=== PATIENT | female | born 1955 | race Caucasian/White ===

== ENCOUNTER 2022-04-18 15:26 | Outpatient (CLI) | payer MEDICARE, SELFPAY ==
--- NOTE | 2022-04-18 13:45 | DI.RAD_ITS ---
Exam(s) XR FOOT RT COMPLETE EXAM: XR FOOT RT COMPLETE CLINICAL HISTORY: foot pain, M79.673. TECHNIQUE: 2D digital imaging was performed. Three views. COMPARISON: No exams were available for comparison FINDINGS: BONES: No acute fracture is present. No bony destructive lesion is seen. Minimal plantar calcaneal s pur. JOINTS: No dislocation present. [id number] degenerative changes of the 1st MTP joint. Subchon dral subchondral cysts in medial spurring at 1st metatarsal head. Degenerative tace is also seen at the sesamoids. Small ossicle noted adjacent to distal cuboid. Small bony density noted at the dorsa l aspect of the talus. Plantar arch is maintained.. SOFT TISSUE: Normal. 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 DATA REPOSITORY: RADIATION DOSE DELIVERED:
--- NOTE | 2022-04-18 13:45 | DI.RAD_ITS ---
Exam(s) XR FOOT LT COMPLETE EXAM: XR FOOT LT COMPLETE CLINICAL HISTORY: foot pain, M79.673. TECHNIQUE: 2D digital imaging was performed. Three views. COMPARISON: CR XR FOOT RT COMPLETE from 04/18/2022 FINDINGS: BONES: No acute fracture is present. No bony destructive lesion is seen. Small heel spurs. Plantar a rch is maintained. JOINTS: No dislocation present. Mild degenerative changes 1st MTP joint. No hallux valgus. Ossicle adjacent distal cuboid. SOFT TISSUE: Normal. IMPRESSION: heel spurs. Mild degenerative changes 1st MTP joint. DATA REPOSITORY: RADIATION DOSE DELIVERED:
== END 2022-04-18 15:46 ==
PROVIDERS: Visit Provider Podiatrist Foot & Ankle Surgery
DX: M79.671 Pain in right foot (principal); M79.672 Pain in left foot; M77.31 Calcaneal spur, right foot; M77.32 Calcaneal spur, left foot; M19.072 Primary osteoarthritis, left ankle and foot; M19.071 Primary osteoarthritis, right ankle and foot
CPT/HCPCS: 73630

== ENCOUNTER 2023-09-10 10:39 | Emergency (ER) | payer MEDICARE, SELFPAY ==
[2023-09-10 10:41] VITALS: BP 161/68; PULSE 63; RESP 16; TEMP 36.7; O2SAT 99
--- NOTE | 2023-09-10 11:38 | ED.GENADUL_ITS ---
Discharge Plan Disposition Patient Disposition: Home Condition: Improving Discharge Details Clinical Impression: Eye irritation Primary Care Provider: Cece,Local ED Provider: Chris Kelly Home Meds and New Rx's Prescriptions: New ofloxacin [Ocuflox] 0.3 % drops See Rx Instructions .ROUTE .COMPLEX Qty: 5 0RF Rx Instructions: put 1-2 drps into affected eye(s) every 2-4 h x 2 days, then 1-2 drps 4 times/day days 3-7 Discharge Instructions Instructions: Conjunctivitis (pink eye) Additional Instructions: Please follow-up with your measuring machine tender. Please return to the emerged part for any worsening symptoms HPI General Date/Time Provider Initiated Documentation: 09/10/23 11:05 . HPI Narrative: 67-year-old female history of cataracts, cataract repair surgery, approximately 2 months ago, presents with foreign body sensation left eye upon waking this morning. Tearing to the eye clear in nature. Related Data Home Medications ?Medication ?Instructions ?Recorded ?Confirmed ofloxacin 0.3 % eye drops (Ocuflox) See Rx Instructions ophthalmic 09/10/23 (eye) .COMPLEX #5 mL Previous Rx's ?Medication ?Instructions ?Recorded ofloxacin 0.3 % eye drops (Ocuflox) See Rx Instructions ophthalmic 09/10/23 (eye) .COMPLEX #5 mL Allergies Allergy/AdvReac Type Severity Reaction Status Date / Time No Known Allergies Allergy Verified 09/10/23 10:43 General Stated Complaint: EyeProblem PB: 4 Exam Narrative Exam Narrative: Resting comfortably no acute distress Clear tearing of left eye, mild conjunctival injection, OS 20/100, OD 20/50, bilateral 20/50, no proptosis, negative for corneal abrasion or corneal ulcer, negative Luisa Speaking full sentences no respiratory distress Alert oriented interactive no focal deficits neurologically Course Vital Signs Vital signs: Vital Signs Temperature 36.7 C 09/10/23 10:41 Pulse 63 09/10/23 10:41 Respiratory Rate 16 09/10/23 10:41 Blood Pressure 161/68 H 09/10/23 10:41 Pulse Oximetry 99 09/10/23 10:41 Temperature 36.7 C 09/10/23 10:41 Temperature Source Skin 09/10/23 10:41 Pulse 63 09/10/23 10:41 Respiratory Rate 16 09/10/23 10:41 Respiratory Effort Normal 09/10/23 11:10 Blood Pressure 161/68 H 09/10/23 10:41 Blood Pressure Position Sitting 09/10/23 10:41 Pulse Oximetry 99 09/10/23 10:41 Oxygen Delivery Method Room Air 09/10/23 10:41 Oxygen Flow Rate 0 09/10/23 10:41 Pain Level 7 09/10/23 10:41 Medical Decision Making 67-year-old female history of cataracts, cataract repair surgery, approximately 2 months ago, presents with foreign body sensation left eye upon waking this morning. Tearing to the eye clear in nature.Clear tearing of left eye, mild conjunctival injection, OS 20/100, OD 20/50, bilateral 20/50, no proptosis, negative for corneal abrasion or corneal ulcer, negative Luisa; I irrigated extensively with normal saline, patient resting comfortably feeling better. Will prescribe prophylactic ofloxacin drops to be used for continued irritation. Likely resolved superficial foreign body, no evidence of ulceration laceration abrasion or perforation to eye. Patient has close follow-up with her measuring machine tender in [place]. Given home care instructions and return precaution Quality:SDOH Health Related Social Needs: No Data to Display PFSH All Active Problems (Updated 09/10/23 @ 11:42 by Chris Kelly MD) Eye irritation (Acute) Foot pain (Acute) Social History Smoking/Tobacco Use Status: Never Smoking risk assessment performed?: Yes Substance use type: does not use Do you feel safe at home: Yes Do you feel safe in your relationship?: Yes
== END 2023-09-10 11:55 | disposition home or self-care (01) ==
LOC: ER 11:44
PROVIDERS: Emergency Provider Emergency Medicine
DX: H57.12 Ocular pain, left eye (principal)
CPT/HCPCS: 99282